=== PATIENT | female | born 1975 | race Caucasian/White ===

== ENCOUNTER 2019-08-23 16:54 | Observation (INO) ==
[2019-08-23] MEDS ORDERED: Naloxone 0.4 MG/ML INJ IVP PRN (22:01)
[2019-08-23] MEDS ORDERED: *HR* LORazepam 1 MG TABLET PO SCH (23:45)
[2019-08-23] MEDS ORDERED: Nitroglycerin 0.4 MG TAB.SUBL SL PRN (23:54)
[2019-08-24] MEDS: levETIRAcetam 250 MG TABLET PO SCH ×2 (00:18→10:40)
[2019-08-24] MEDS: Gabapentin 300 MG CAPSULE PO SCH ×3 (00:18→15:50)
[2019-08-24] MEDS ORDERED: Ondansetron 4 MG/2 ML VIAL IVP PRN (04:06)
[2019-08-24 04:25] LABS: Hematocrit 35.1 % (35.3-44.9); Hemoglobin 11.3 g/dL (11.5-15.4); Mean Corpuscular HGB Conc 32.2 g/dL (31.6-35.5); Mean Corpuscular Hemoglobin 31.2 pg (28.0-33.3); Mean Platelet Volume 9.8 fL (9.4-12.4); Platelet Count 282 K/mcL (140-400); Red Blood Count 3.62 M/mcL (3.82-4.97); White Blood Count 10.6 K/mcL (4.3-11.1)
[2019-08-24 04:45] LABS: Alanine Aminotransferase 14 Units/L (7-52); Albumin 3.6 g/dL (3.5-5.7); Albumin/Globulin Ratio 1.7 (1.1-2.2); Alkaline Phosphatase 54 Units/L (34-104); Aspartate Amino Transferase 10 Units/L (13-39); BUN/Creatinine Ratio 15 (6-26); Bilirubin,Total 0.4 mg/dL (0.3-1.0); Blood Urea Nitrogen 11 mg/dL (6-20); Calcium 8.9 mg/dL (8.6-10.3); Carbon Dioxide 27 mEq/L (23-29); Chloride 106 mEq/L (98-107); Globulin 2.1 g/dL (2.4-3.5); Glucose 101 mg/dL (70-105); Osmolality,Calculated 286 (280-300); Sodium 138 mEq/L (136-145); Total Protein 5.7 g/dL (6.4-8.9); eGFR For African Americans > 60 (> 60); eGFR For Non-African Americans > 60 (> 60)
[2019-08-24] MEDS: *HR* Heparin 5,000 UNIT/ML VIAL SQ SCH ×2 (06:44→16:49)
[2019-08-24] MEDS ORDERED: tiZANidine 4 MG TABLET PO SCH ×2 (09:00→21:00)
[2019-08-24] MEDS ORDERED: Metoprolol XL (24 HR) Succ 50 MG TAB.ER.24H PO SCH (09:00)
[2019-08-24] MEDS ORDERED: Perflutren Lipid Microsphere 1.3 ML in 0.9 % Sodium Chloride 8.7 ML IVP ONE (09:09)
[2019-08-24] MEDS: tiZANidine 4 MG TABLET PO SCH ×2 (10:40→15:50)
[2019-08-24] MEDS: *HR* LORazepam 0.5 MG TABLET PO SCH ×2 (10:40→15:50)
[2019-08-24 15:37] VITALS: BP 95/85
[2019-08-24] MEDS ORDERED: Acetaminophen 325 MG TABLET PO PRN (16:41)
== END 2019-08-24 18:57 | disposition left against medical advice (07) ==
LOC: 3BNU
PROVIDERS: ADMIT Internal Medicine; ATTEND Internal Medicine